=== PATIENT | male | born 1995 | race American Indian/Alaskan Native ===

== ENCOUNTER 2016-09-06 00:32 | Emergency (ER) | payer SELFPAY ==
[2016-09-06 00:55] VITALS: BP 138/90
--- NOTE | 2016-09-08 15:37 | ED Elopement Review ---
ED Pt Elopement review - Call Back decision Pt Call Back Decision: No action required
== END 2016-09-06 06:28 | disposition left against medical advice (07) ==
LOC: ED 00:32
DX: R68.84 Jaw pain (principal); K08.89 Other specified disorders of teeth and supporting structures; F17.200 Nicotine dependence, unspecified, uncomplicated; Z53.21 Procedure and treatment not carried out due to patient leaving prior to being seen by health care provider

== ENCOUNTER 2019-01-14 18:30 | Emergency (ER) | payer SELFPAY ==
[2019-01-14 18:53] VITALS: BP 128/73
--- NOTE | 2019-01-14 18:55 | Emergency Department Report ---
ED ENT HPI - General Chief complaint: Dental/Oral Stated complaint: CYST/MOUTH PAIN Time Seen by Provider: 01/14/19 18:50 Source: patient Mode of arrival: Ambulatory Limitations: No Limitations - History of Present Illness Initial comments: Pt is a 23 yo male who presents with upper dental pain that began last week. states he last saw a dentist a year ago, states he had three teeth pulled. no fever, no facial edema. PMHx asthma. no allergies to meds. - Related Data Previous Rx's Medication Instructions Recorded Last Taken Type Acetaminophen/Codeine [Tylenol 1 tab PO Q6H PRN #6 tab 01/14/19 Unknown Rx /Codeine # 3 tab] Clindamycin [Clindamycin CAP] 450 mg PO TID 7 Days #63 capsule 01/14/19 Unknown Rx Ibuprofen [Motrin 600 MG tab] 600 mg PO Q8H PRN #14 tablet 01/14/19 Unknown Rx Penicillin Vk [Veetids TAB] 500 mg PO QID 7 Days #56 tablet 01/14/19 Unknown Rx Allergies Allergy/AdvReac Type Severity Reaction Status Date / Time No Known Allergies Allergy Verified 01/14/19 18:37 ED Dental HPI - General Chief complaint: Dental/Oral Stated complaint: CYST/MOUTH PAIN Time Seen by Provider: 01/14/19 18:50 Source: patient Mode of arrival: Ambulatory Limitations: No Limitations - Related Data Previous Rx's Medication Instructions Recorded Last Taken Type Acetaminophen/Codeine [Tylenol 1 tab PO Q6H PRN #6 tab 01/14/19 Unknown Rx /Codeine # 3 tab] Clindamycin [Clindamycin CAP] 450 mg PO TID 7 Days #63 capsule 01/14/19 Unknown Rx Ibuprofen [Motrin 600 MG tab] 600 mg PO Q8H PRN #14 tablet 01/14/19 Unknown Rx Penicillin Vk [Veetids TAB] 500 mg PO QID 7 Days #56 tablet 01/14/19 Unknown Rx Allergies Allergy/AdvReac Type Severity Reaction Status Date / Time No Known Allergies Allergy Verified 01/14/19 18:37 ED Review of Systems ROS: Stated complaint: CYST/MOUTH PAIN Other details as noted in HPI Comment: All other systems reviewed and negative ED Past Medical Hx - Past Medical History Previous Medical History?: No - Surgical History Additional Surgical History: DENTAL SUTURE - Social History Smoking Status: Current Every Day Smoker Substance Use Type: Alcohol, Marijuana - Medications Home Medications: Home Medications Medication Instructions Recorded Confirmed Last Taken Type Acetaminophen/Codeine [Tylenol 1 tab PO Q6H PRN #6 tab 01/14/19 Unknown Rx /Codeine # 3 tab] Clindamycin [Clindamycin CAP] 450 mg PO TID 7 Days #63 capsule 01/14/19 Unknown Rx Ibuprofen [Motrin 600 MG tab] 600 mg PO Q8H PRN #14 tablet 01/14/19 Unknown Rx Penicillin Vk [Veetids TAB] 500 mg PO QID 7 Days #56 tablet 01/14/19 Unknown Rx ED Physical Exam - General Limitations: No Limitations General appearance: alert, in no apparent distress - Head Head exam: Present: atraumatic, normocephalic - Eye Eye exam: Present: normal appearance - ENT ENT exam: Present: normal orophraynx, mucous membranes moist, other (cracked tooth to the right upper jaw with area of edema present on the gumline and hard palate, uvula is midline, no uvular edema ) - Respiratory Respiratory exam: Present: normal lung sounds bilaterally. Absent: respiratory distress, wheezes, rales, rhonchi, stridor, chest wall tenderness, accessory muscle use, decreased breath sounds, prolonged expiratory - Cardiovascular Cardiovascular Exam: Present: regular rate, normal rhythm, normal heart sounds. Absent: systolic murmur, diastolic murmur, rubs, gallop - Neurological Exam Neurological exam: Present: alert, oriented X3 - Psychiatric Psychiatric exam: Present: normal affect, normal mood - Skin Skin exam: Present: warm, dry, intact ED Course Vital Signs 01/14/19 18:50 Temperature 99.7 F H Pulse Rate 88 Respiratory 16 Rate Blood Pressure 128/73 [Left] O2 Sat by Pulse 99 Oximetry ED Medical Decision Making - Medical Decision Making Pt is a 23 yo male who presents with upper dental pain that began last week. states he last saw a dentist a year ago, states he had three teeth pulled. no fever, no facial edema. PMHx asthma. no allergies to meds. VSS. on exam: cracked tooth to the right upper jaw with area of edema present on the gumline and hard palate, uvula is midline, no uvular edema, examination consistent with dental abscess. pt given clindamycin, penicillin vk, tylenol with codeine, ibuprofen. advised pt to please take medication as prescribed. do not drive or operate heavy machinery while taking pain medication. please follow up with a dentist in the next 2-3 days. it is very important you follow up with a dentist for a permanent solution. given list of community dental clinics. return to the emergency room for any new or worsening symptoms. Critical care attestation.: If time is entered above; I have spent that time in minutes in the direct care of this critically ill patient, excluding procedure time. ED Disposition Clinical Impression: Dental abscess, Cracked tooth, Dental caries Disposition: TO HOME OR SELFCARE Is pt being admited?: No Does the pt Need Aspirin: No Condition: Stable Instructions: Dental Abscess (ED) Additional Instructions: please take medication as prescribed. do not drive or operate heavy machinery while taking pain medication. please follow up with a dentist in the next 2-3 days. it is very important you follow up with a dentist for a permanent solution. given list of community dental clinics. return to the emergency room for any new or worsening symptoms. Prescriptions: Clindamycin [Clindamycin CAP] 450 mg PO TID 7 Days #63 capsule Ibuprofen [Motrin 600 MG tab] 600 mg PO Q8H PRN #14 tablet PRN Reason: Pain Acetaminophen/Codeine [Tylenol /Codeine # 3 tab] 1 tab PO Q6H PRN #6 tab PRN Reason: Pain , Severe (7-10) Penicillin Vk [Veetids TAB] 500 mg PO QID 7 Days #56 tablet Referrals: a, dentist [Other] - 2-3 Days Time of Disposition: 18:56 Print Language: FAROESE
== END 2019-01-14 19:09 | disposition home or self-care (01) ==
LOC: ED 18:30
DX: K04.7 Periapical abscess without sinus (principal); K03.81 Cracked tooth; K02.9 Dental caries, unspecified; F17.200 Nicotine dependence, unspecified, uncomplicated; F12.90 Cannabis use, unspecified, uncomplicated; Z79.899 Other long term (current) drug therapy
CPT/HCPCS: 99282

== ENCOUNTER 2019-10-06 01:57 | Emergency (ER) | payer SELFPAY ==
[2019-10-06 02:10] VITALS: BP 124/61
[2019-10-06] MEDS ORDERED: CLINDAMYCIN 300 MG CAP PO ONE (02:22)
[2019-10-06] MEDS ORDERED: IBUPROFEN 600 MG TAB PO ONE (02:22)
[2019-10-06] MEDS ORDERED: predniSONE 20 MG TAB PO ONE (02:22)
[2019-10-06] MEDS ORDERED: HYDROcodone/ACETAMINOPHEN 7.5-325MG TAB PO ONE (02:22)
[2019-10-06] MEDS ORDERED: ONDANSETRON 4 MG ODT TAB PO ONE (02:23)
--- NOTE | 2019-10-06 02:27 | Emergency Department Report ---
ED General Adult HPI - General Chief complaint: Dental/Oral Stated complaint: TOOTH PAIN Source: patient Mode of arrival: Ambulatory Limitations: No Limitations - History of Present Illness Initial comments: Patient is a 24-year-old -Mong[place] male with no past medical history who presents to the ED with complaint of persistent worsening left maxillary maxillary gingival swelling and pain for the last 2 weeks after having a dental extraction surgery which extracted his left maxillary premolar and molar teeth. Patient states that subsequently he took prophylactic antibiotics for 1 week, penicillin and completed. Patient states that the left lateral maxillary gingival swelling and pain have worsened in the last 3 days such that he has not been able to sleep or work because of the pain. Patient also complains of severe headache on the left temporal area. Patient denies dizziness, syncope, chest pain, shortness of breath, sore throat, nausea and vomiting, fever, chills, cough, abdominal pain, change in vision or dysphagia and dysphonia. MD Complaint: left maxillary gum pain and swelling -: Sudden, week(s) (2) Location: mouth Radiation: non-radiation Severity scale (0 -10): 8 Quality: aching, sharp Consistency: constant Improves with: none Worsens with: eating Associated Symptoms: denies other symptoms, loss of appetite. denies: confusion, chest pain, cough, diaphoresis, fever/chills, headaches, malaise, nausea/vomiting, rash, seizure, shortness of breath, syncope, weakness Treatments Prior to Arrival: none - Related Data Previous Rx's Medication Instructions Recorded Last Taken Type Acetaminophen/Codeine [Tylenol 1 tab PO Q6H PRN #6 tab 01/14/19 Unknown Rx /Codeine # 3 tab] Clindamycin [Clindamycin CAP] 450 mg PO TID 7 Days #63 capsule 01/14/19 Unknown Rx Ibuprofen [Motrin 600 MG tab] 600 mg PO Q8H PRN #14 tablet 01/14/19 Unknown Rx Penicillin Vk [Veetids TAB] 500 mg PO QID 7 Days #56 tablet 01/14/19 Unknown Rx Acetaminophen/Codeine [Tylenol 1 tab PO Q6H PRN #10 tab 10/06/19 Unknown Rx /Codeine # 3 tab] Clindamycin [Clindamycin CAP] 300 mg PO Q8HR #60 capsule 10/06/19 Unknown Rx Ketorolac [Toradol] 10 mg PO Q8H PRN #20 tablet 10/06/19 Unknown Rx predniSONE [Deltasone] 40 mg PO QDAY #10 tab 10/06/19 Unknown Rx Allergies Allergy/AdvReac Type Severity Reaction Status Date / Time No Known Allergies Allergy Verified 01/14/19 18:37 ED Review of Systems ROS: Stated complaint: TOOTH PAIN Other details as noted in HPI Constitutional: denies: chills, fever Eyes: denies: eye pain, eye discharge, vision change ENT: dental pain (swollen left maxillary gums with pain). denies: ear pain, throat pain Respiratory: denies: cough, shortness of breath, wheezing Cardiovascular: denies: chest pain, palpitations Endocrine: no symptoms reported Gastrointestinal: denies: abdominal pain, nausea, diarrhea Genitourinary: denies: urgency, dysuria Musculoskeletal: denies: back pain, joint swelling, arthralgia Skin: denies: rash, lesions Neurological: headache. denies: weakness, paresthesias Psychiatric: denies: anxiety, depression Hematological/Lymphatic: denies: easy bleeding, easy bruising ED Past Medical Hx - Past Medical History Previous Medical History?: Yes Hx Asthma: Yes - Surgical History Past Surgical History?: Yes Additional Surgical History: DENTAL SUTURE - Social History Smoking Status: Current Some Day Smoker Substance Use Type: Alcohol, Marijuana - Medications Home Medications: Home Medications Medication Instructions Recorded Confirmed Last Taken Type Acetaminophen/Codeine [Tylenol 1 tab PO Q6H PRN #6 tab 01/14/19 Unknown Rx /Codeine # 3 tab] Clindamycin [Clindamycin CAP] 450 mg PO TID 7 Days #63 capsule 01/14/19 Unknown Rx Ibuprofen [Motrin 600 MG tab] 600 mg PO Q8H PRN #14 tablet 01/14/19 Unknown Rx Penicillin Vk [Veetids TAB] 500 mg PO QID 7 Days #56 tablet 01/14/19 Unknown Rx Acetaminophen/Codeine [Tylenol 1 tab PO Q6H PRN #10 tab 10/06/19 Unknown Rx /Codeine # 3 tab] Clindamycin [Clindamycin CAP] 300 mg PO Q8HR #60 capsule 10/06/19 Unknown Rx Ketorolac [Toradol] 10 mg PO Q8H PRN #20 tablet 10/06/19 Unknown Rx predniSONE [Deltasone] 40 mg PO QDAY #10 tab 10/06/19 Unknown Rx ED Physical Exam - General Limitations: No Limitations General appearance: alert, in no apparent distress - Head Head exam: Present: atraumatic, normocephalic, normal inspection - Eye Eye exam: Present: normal appearance, PERRL, EOMI Pupils: Present: normal accommodation - ENT ENT exam: Present: normal exam, mucous membranes moist, TM's normal bilaterally, normal external ear exam, other (Grossly swollen tender left maxillary gums with diffuse dental caries) - Neck Neck exam: Present: normal inspection, full ROM - Respiratory Respiratory exam: Present: normal lung sounds bilaterally. Absent: respiratory distress, wheezes, rales, rhonchi, chest wall tenderness, accessory muscle use, decreased breath sounds, prolonged expiratory - Cardiovascular Cardiovascular Exam: Present: regular rate, normal rhythm, normal heart sounds. Absent: systolic murmur, diastolic murmur, rubs, gallop - GI/Abdominal GI/Abdominal exam: Present: soft, normal bowel sounds. Absent: tenderness, guarding, rebound, hyperactive bowel sounds, hypoactive bowel sounds, organomegaly - Extremities Exam Extremities exam: Present: normal inspection, full ROM, normal capillary refill - Back Exam Back exam: Present: normal inspection, full ROM. Absent: tenderness, muscle spasm, paraspinal tenderness, vertebral tenderness - Neurological Exam Neurological exam: Present: alert, oriented X3, CN II-XII intact, normal gait, reflexes normal - Psychiatric Psychiatric exam: Present: normal affect, normal mood - Skin Skin exam: Present: warm, dry, intact, normal color. Absent: rash ED Course Vital Signs 10/06/19 02:08 Temperature 97.6 F Pulse Rate 65 Respiratory 16 Rate Blood Pressure 124/61 O2 Sat by Pulse 99 Oximetry ED Medical Decision Making - Medical Decision Making This is a 24-year-old -[place] male with no past medical history who presents to the ED with complaint of persistent worsening left maxillary maxillary gingival swelling and pain for the last 2 weeks after having a dental extraction surgery which extracted his left maxillary premolar and molar teeth. Patient states that subsequently he took prophylactic antibiotics for 1 week, penicillin and completed. Patient states that the left lateral maxillary gingival swelling and pain have worsened in the last 3 days such that he has not been able to sleep or work because of the pain. Patient also complains of severe headache on the left temporal area. In the ED, patient is alert and amandeep ented x3 and is not in distress but appears to be in significant pain. Patient was treated in the ED for pain and was given initial oral antibiotics. Patient was discharged home on pain medications and antibiotics and was advised to follow-up with his primary care physician or dentist in 7 to 10 days for reevaluation or return to the ED immediately if symptoms get worse. - Differential Diagnosis dental caries; Gingivitis; abscess Critical care attestation.: If time is entered above; I have spent that time in minutes in the direct care of this critically ill patient, excluding procedure time. ED Disposition Clinical Impression: Acute gingivitis, Dental caries Disposition: TO HOME OR SELFCARE Is pt being admited?: No Does the pt Need Aspirin: No Condition: Stable Instructions: Dental Caries (ED), Gingivitis (ED) Additional Instructions: Take medication with food, drink plenty of fluids and follow-up with your primary care physician in 7 to 10 days for reevaluation. Consider following up with a dentist for further evaluation. Return to the ED immediately if symptoms get worse. Prescriptions: Clindamycin [Clindamycin CAP] 300 mg PO Q8HR #60 capsule predniSONE [Deltasone] 40 mg PO QDAY #10 tab Ketorolac [Toradol] 10 mg PO Q8H PRN #20 tablet PRN Reason: Pain Acetaminophen/Codeine [Tylenol /Codeine # 3 tab] 1 tab PO Q6H PRN #10 tab PRN Reason: Pain , Severe (7-10) Referrals: [facility] [Outside] - 3-5 Days Forms: Work/School Release Form(ED) Time of Disposition: 02:24 Print Language: AMHARIC
== END 2019-10-06 02:55 | disposition home or self-care (01) ==
LOC: ED 01:57
DX: K02.9 Dental caries, unspecified (principal); K05.00 Acute gingivitis, plaque induced; J45.909 Unspecified asthma, uncomplicated; F17.200 Nicotine dependence, unspecified, uncomplicated; F12.10 Cannabis abuse, uncomplicated; Z79.899 Other long term (current) drug therapy
CPT/HCPCS: 99282; J7512; Q0162

== ENCOUNTER 2020-04-18 22:21 | Emergency (ER) | payer SELFPAY ==
[2020-04-18 22:28] VITALS: BP 127/68
== END 2020-04-19 | disposition left against medical advice (07) ==
LOC: ED 22:21
DX: F10.10 Alcohol abuse, uncomplicated (principal); Z53.21 Procedure and treatment not carried out due to patient leaving prior to being seen by health care provider

== ENCOUNTER 2020-09-26 09:24 | Emergency (ER) | payer OTHER ==
[2020-09-26 09:42] VITALS: BP 115/74
[2020-09-26 10:09] LABS: Basophils # (Auto) 0.1 K/mm3 (0.0-0.1); Basophils % (Auto) 0.8 % (0.0-1.8); Eosinophils # (Auto) 0.1 K/mm3 (0.0-0.4); Eosinophils % (Auto) 1.8 % (0.0-4.3); Hematocrit 46.6 % (35.5-45.6); Hemoglobin 15.7 gm/dl (11.8-15.2); Lymphocytes # (Auto) 3.2 K/mm3 (1.2-5.4); Lymphocytes % (Auto) 45.6 % (13.4-35.0); Mean Corpuscular HGB Conc 34 % (32-34); Mean Corpuscular Volume 88 fl (84-94); Monocytes # (Auto) 0.5 K/mm3 (0.0-0.8); Monocytes % (Auto) 6.6 % (0.0-7.3); Platelet Count 285 K/mm3 (140-440); Red Blood Count 5.31 M/mm3 (3.65-5.03); Red Cell Distribution Width 12.6 % (13.2-15.2)
[2020-09-26 10:13] LABS: Bilirubin,Urine NEG (Negative); Blood,Urine NEG (Negative); Color,Urine Yellow (Yellow); Mucus,Urine FEW /HPF; Protein,Urine <15 mg/dL mg/dL (Negative); Urobilinogen,Urine < 2.0 mg/dL (<2.0)
[2020-09-26 10:31] LABS: Alanine Aminotransferase 10 units/L (7-56); Albumin 4.7 g/dL (3.9-5); BUN/Creatinine Ratio 10; Blood Urea Nitrogen 10 mg/dL (9-20); Calcium 9.3 mg/dL (8.4-10.2); Hemolysis Index 14
[2020-09-26] MEDS ORDERED: SODIUM CHLORIDE 0.9% 1000 ML 1,000 ML IV ONE (10:42)
[2020-09-26] MEDS ORDERED: DICYCLOMINE 20 MG/2 ML INJ IM ONE (10:42)
[2020-09-26] MEDS ORDERED: ONDANSETRON 4 MG/2 ML INJ IV ONE (10:42)
--- NOTE | 2020-09-26 10:46 | Emergency Department Report ---
<AMARJIT MEIER - Last Filed: 09/26/20 20:07> ED Abdominal Pain HPI - General Chief Complaint: Abdominal Pain Stated Complaint: ABD PAIN, SIDE PAIN Time Seen by Provider: 09/26/20 10:17 Source: patient Mode of arrival: Ambulatory Limitations: No Limitations - History of Present Illness Initial Comments: 25-year-old male presents to the ER today with complaints of abdominal pain, nausea and vomiting. Patient states that he has been having pain to the left and right sides of abdomen/right and left flank areas off and on for about 12 years. He reports associated intermittent nausea and vomiting mainly in the morning when he wakes up. He states that he does not recall being taken to the emergency department manager for evaluation for his pain/vomiting when he was younger. He states that he did see a primary care physician last year in 2019 for the first time for his symptoms and he states they did a urinalysis and he was told that he may have kidney stones. He was supposed to follow-up but he states soon after he lost his job and therefore his insurance. Patient states that what made him come in today is because he woke up again with similar stabbing pain to his right and left flank area/abdominal areas but he did not get much relief of the pain after urinating which typically he gets relief after urinating. He denies any hematuria, he denies any dysuria, he denies any urinary odor or urinary frequency. He denies any diarrhea or constipation. He denies any hematemesis or coffee-ground emesis, hematochezia, mucus in the school, or melena. Patient states that he does smoke marijuana but denies any other illicit drug use. Patient states that he stopped drinking alcohol completely 6 months ago but prior to that he was a social drinker. He denies any abdominal surgeries. MD Complaint: abdominal pain -: year(s) Location: bilateral flank - Related Data Previous Rx's Medication Instructions Recorded Last Taken Type Acetaminophen/Codeine [Tylenol 1 tab PO Q6H PRN #6 tab 01/14/19 Unknown Rx /Codeine # 3 tab] Clindamycin [Clindamycin CAP] 450 mg PO TID 7 Days #63 capsule 01/14/19 Unknown Rx Ibuprofen [Motrin 600 MG tab] 600 mg PO Q8H PRN #14 tablet 01/14/19 Unknown Rx Penicillin Vk [Veetids TAB] 500 mg PO QID 7 Days #56 tablet 01/14/19 Unknown Rx Acetaminophen/Codeine [Tylenol 1 tab PO Q6H PRN #10 tab 10/06/19 Unknown Rx /Codeine # 3 tab] Clindamycin [Clindamycin CAP] 300 mg PO Q8HR #60 capsule 10/06/19 Unknown Rx Ketorolac [Toradol] 10 mg PO Q8H PRN #20 tablet 10/06/19 Unknown Rx predniSONE [Deltasone] 40 mg PO QDAY #10 tab 10/06/19 Unknown Rx Allergies Allergy/AdvReac Type Severity Reaction Status Date / Time No Known Allergies Allergy Verified 09/26/20 09:42 ED Review of Systems Comment: All other systems reviewed and negative Constitutional: denies: chills, fever Eyes: denies: eye pain, eye discharge, vision change ENT: denies: ear pain, throat pain Respiratory: denies: cough, shortness of breath, wheezing Cardiovascular: denies: chest pain, palpitations, dyspnea on exertion, edema, syncope, paroxysmal nocturnal dyspnea Gastrointestinal: abdominal pain, nausea, vomiting. denies: diarrhea, constipation, hematemesis, melena, hematochezia Genitourinary: denies: urgency, dysuria, frequency, hematuria, discharge, testicular pain, testicular mass Musculoskeletal: denies: back pain, joint swelling, arthralgia Skin: denies: rash, lesions, change in color, change in hair/nails, pruritus Neurological: denies: headache, weakness, numbness, paresthesias, confusion, abnormal gait, vertigo Psychiatric: denies: anxiety, depression Hematological/Lymphatic: denies: easy bleeding, easy bruising ED Past Medical Hx - Past Medical History Hx Asthma: Yes - Surgical History Additional Surgical History: DENTAL SUTURE - Social History Smoking Status: Current Some Day Smoker Substance Use Type: Marijuana - Medications Home Medications: Home Medications Medication Instructions Recorded Confirmed Last Taken Type Acetaminophen/Codeine [Tylenol 1 tab PO Q6H PRN #6 tab 01/14/19 Unknown Rx /Codeine # 3 tab] Clindamycin [Clindamycin CAP] 450 mg PO TID 7 Days #63 capsule 01/14/19 Unknown Rx Ibuprofen [Motrin 600 MG tab] 600 mg PO Q8H PRN #14 tablet 01/14/19 Unknown Rx Penicillin Vk [Veetids TAB] 500 mg PO QID 7 Days #56 tablet 01/14/19 Unknown Rx Acetaminophen/Codeine [Tylenol 1 tab PO Q6H PRN #10 tab 10/06/19 Unknown Rx /Codeine # 3 tab] Clindamycin [Clindamycin CAP] 300 mg PO Q8HR #60 capsule 10/06/19 Unknown Rx Ketorolac [Toradol] 10 mg PO Q8H PRN #20 tablet 10/06/19 Unknown Rx predniSONE [Deltasone] 40 mg PO QDAY #10 tab 10/06/19 Unknown Rx ED Physical Exam - General Limitations: No Limitations General appearance: alert, in no apparent distress - Head Head exam: Present: atraumatic, normocephalic, normal inspection - Eye Eye exam: Present: normal appearance, PERRL, EOMI Pupils: Present: normal accommodation - ENT ENT exam: Present: normal exam, mucous membranes moist - Neck Neck exam: Present: normal inspection, full ROM - Respiratory Respiratory exam: Present: normal lung sounds bilaterally. Absent: respiratory distress, wheezes, rales, rhonchi - Cardiovascular Cardiovascular Exam: Present: regular rate, normal rhythm, normal heart sounds - GI/Abdominal GI/Abdominal exam: Present: soft, tenderness (RUQ, RLQ and LLQ with mild guarding ). Absent: distended, rebound, rigid - Back Exam Back exam: Present: normal inspection - Neurological Exam Neurological exam: Present: alert, oriented X3, CN II-XII intact, normal gait - Psychiatric Psychiatric exam: Present: normal affect, normal mood - Skin Skin exam: Present: intact ED Medical Decision Making - Lab Data Result diagrams: 09/26/20 09:59 09/26/20 09:59 - Medical Decision Making 1103: After coming from seeing a patient upfront, nurse informed me that patient left AMA. He states patient told him he did not want to get an IV or CT and signed out AMA. I was not informed of patient refusal and decision to sign out until after he left ER. ED Disposition Clinical Impression: Abdominal pain Disposition: DC-07 LEFT AGAINST MED ADVICE Is pt being admited?: No Does the pt Need Aspirin: No Condition: Undetermined Referrals: PRIMARY CARE, [Primary Care Provider] - 3-5 Days Forms: AMA Form <ALMA HYDE - Last Filed: 10/01/20 13:45> ED Abdominal Pain HPI - General PUI?: No ED Review of Systems ROS: Stated complaint: ABD PAIN, SIDE PAIN Other details as noted in HPI ED Course Vital Signs 09/26/20 09:40 Temperature 98.4 F Pulse Rate 76 Respiratory 20 Rate Blood Pressure 115/74 O2 Sat by Pulse 100 Oximetry ED Medical Decision Making - Lab Data Result diagrams: 09/26/20 09:59 09/26/20 09:59 Critical care attestation.: If time is entered above; I have spent that time in minutes in the direct care of this critically ill patient, excluding procedure time. ED Disposition Is pt being admited?: No Does the pt Need Aspirin: No
== END 2020-09-26 11:05 | disposition left against medical advice (07) ==
LOC: ED 09:24
DX: R10.9 Unspecified abdominal pain (principal); R11.2 Nausea with vomiting, unspecified; J45.909 Unspecified asthma, uncomplicated; F17.200 Nicotine dependence, unspecified, uncomplicated; Z79.899 Other long term (current) drug therapy
CPT/HCPCS: 36415; 80053; 81001; 83690; 85025; 99283

== ENCOUNTER 2020-10-28 10:42 | Emergency (ER) | payer OTHER ==
[2020-10-28 10:57] VITALS: BP 140/77
--- NOTE | 2020-10-28 11:42 | Emergency Department Report ---
Chief Complaint: Dyspnea/Respdistress Stated Complaint: JUDY Time Seen by Provider: 10/28/20 11:33 - HPI History of Present Illness: 25-year-old male patient presents emergency department with complaints of chest pain since yesterday. Patient was already evaluated at another local emergency department this morning. Diagnostic work-up was unremarkable. He was discharged home with cardiology referral. States his cardiology appointment is scheduled for tomorrow. His symptoms are no different now than they were earlier this morning during his ED evaluation. He is here for "advice on how to get to my appointment." No new symptoms. Of note, triage documentation states patient has a history of asthma. During medical screening examination, patient denies history of asthma. - ROS Review of Systems: GENERAL: Negative for fever. CARDIOVASCULAR: Positive for chest pain. PULMONARY: Negative for shortness of breath. GASTROINTESTINAL: Negative for abdominal pain. MUSCULOSKELETAL: Negative for back pain. NEUROLOGICAL: Negative for headache. INTEGUMENTARY: Negative for rash. - Exam Vital Signs: Vital Signs 10/28/20 10:48 Temperature 98.2 F Pulse Rate 123 H Respiratory 20 Rate Blood Pressure 140/77 O2 Sat by Pulse 100 Oximetry Physical Exam: General: Awake and alert. No acute distress. Head: Atraumatic, normocephalic. Eyes: EOMI. Pupils are equal and round. Normal sclera and conjunctiva. ENT: Oral mucosa is moist. Normal pharyngeal exam. Neck: Supple. No lymphadenopathy. Pulmonary: No respiratory distress. Clear to auscultation bilaterally. Cardiac: Regular rate and rhythm. Pulses are palpable and equal bilaterally. No lower extremity cyanosis or edema. Skin: Warm and dry. No rashes. Abdomen: Soft, non-tender, non-protuberant. No guarding, rigidity, or rebound. Bowel sounds are normal. No organomegaly or masses noted. Back: Normal alignment. No CVA tenderness. Extremities: Symmetrical. Full range of motion intact. Neurological: Alert and oriented, appropriately interactive, no focal deficits. Psych: Cooperative. Appropriate mood and affect. Speech is evenly metered. Thoughts are logically construed. MSE screening note: Focused history and physical exam performed. Due to findings the following was ordered: ED Medical Decision Making - Medical Decision Making Patient presents to the emergency department from another local emergency department following chest pain evaluation. Documentation from [facility] shows patient was evaluated by an emergency physician and underwent EKG, chest x-ray, CBC, CMP, D-dimer, CT of the chest with IV contrast, coagulation studies, and troponin assay. He was diagnosed with nonspecific chest pain, prescribed Protonix, and referred to cardiology for follow-up within 48 hours. Patient has not filled his prescription. His vital signs were stable at the time of discharge. He has not developed any new symptoms or worsening of his symptoms since leaving the emergency department less than 8 hours ago. Of note, patient was apparently also evaluated by the outside facility on October 27 for similar symptoms and referred to agriculture teacher -- this is patient's third evaluation in 48 hours. Patient is afebrile, hemodynamically stable, no respiratory distress, no h ypoxia, ambulatory without assistance. He is walking around the waiting room and engaging in conversation with other patients waiting to be seen. Tachycardia noted on arrival resolved without intervention. Repeat heart rate 96 bpm. There is no clinical indication for repeat chest pain evaluation on an emergent basis. Emphasized the importance of following up with both cardiology and gastroenterology as previously instructed. Patient expressed understanding and is agreeable to plan of care. Strict return precautions provided. History, exam, diagnostic testing, and current condition do not suggest worrisome pathology to warrant further testing, continued ED treatment, admission, or surgical evaluation at this point. Given the low probability of a significant medical illness, it would be more likely to result in harm than benefit to perform further testing at this stage. Discussed findings, presumptive diagnosis, need for follow-up and specific signs/symptoms that should prompt immediate return to the emergency department. Instructions were explained in detail to the patient in addition to giving written discharge information. Patient expressed understanding and was given the opportunity to ask questions, all of which were satisfactorily answered prior to discharge home. ED Disposition for MSE Clinical Impression: Encounter for medical screening examination Disposition: Z- MED SCREENING EXAM-LEFT Is pt being admited?: No Does the pt Need Aspirin: No Condition: Stable Instructions: Medical Screening Exam Additional Instructions: Take Tylenol every 4 hours and Motrin every 8 hours as needed for pain. You must follow-up with metal ceiling builder and agriculture teacher as previously instructed. Return to the emergency department immediately for new or worsening symptoms. Referrals: [facility] [Provider Group] - 3-5 Days Time of Disposition: 11:43
== END 2020-10-28 11:50 | disposition left against medical advice (07) ==
LOC: ED 10:42
DX: R07.89 Other chest pain (principal); Z00.00 Encounter for general adult medical examination without abnormal findings; Z53.21 Procedure and treatment not carried out due to patient leaving prior to being seen by health care provider

== ENCOUNTER 2020-11-01 21:54 | Emergency (ER) | payer SELFPAY ==
--- NOTE | 2020-11-01 22:15 | Event Note ---
ED Screening Note ED Screening Note: GIRLFRIEND DROVE TO ER STATING HE CANT BREATH PT LEANING FORWARD, TACHYPNIC STATES HE IS SOB HERE 4 DAYS AGO WITH THE SAME SEE EMR DENIES MED HX This initial assessment/diagnostic orders/clinical plan/treatment(s) is/are subject to change based on patients health status, clinical progression and re-assessment by fellow clinical providers in the ED. Further treatment and workup at subsequent clinical providers discretion. Patient/guardian urged not to elope from the ED as their condition may be serious if not clinically assessed and managed. Initial orders include: EKG LABS UDS
[2020-11-01 22:51] LABS: Basophils % (Auto) 0.7 % (0.0-1.8); Eosinophils # (Auto) 0.1 K/mm3 (0.0-0.4); Eosinophils % (Auto) 1.2 % (0.0-4.3); Hemoglobin 15.3 gm/dl (11.8-15.2); Lymphocytes # (Auto) 3.4 K/mm3 (1.2-5.4); Lymphocytes % (Auto) 48.4 % (13.4-35.0); Mean Corpuscular HGB Conc 35 % (32-34); Mean Corpuscular Volume 86 fl (84-94); Monocytes # (Auto) 0.5 K/mm3 (0.0-0.8); Monocytes % (Auto) 6.6 % (0.0-7.3); Platelet Count 286 K/mm3 (140-440); Red Cell Distribution Width 12.3 % (13.2-15.2)
--- NOTE | 2020-11-01 23:01 | XRay Report ---
CHEST 2 VIEWS INDICATION / CLINICAL INFORMATION: Chest Pain. COMPARISON: None available FINDINGS: SUPPORT DEVICES: None. HEART / MEDIASTINUM: No significant abnormality. LUNGS / PLEURA: No significant pulmonary or pleural abnormality. No pneumothorax. ADDITIONAL FINDINGS: No significant additional findings. IMPRESSION: 1. No acute findings. Signer Name: Brooklyn Evans MD Signed: 11/01/2020 10:56 PM Workstation Name: [id number]
[2020-11-01 23:15] LABS: Alanine Aminotransferase 12 units/L (7-56); Albumin 5.1 g/dL (3.9-5); BUN/Creatinine Ratio 8; Blood Urea Nitrogen 9 mg/dL (9-20); Hemolysis Index 8
--- NOTE | 2020-11-01 23:30 | Emergency Department Report ---
ED Chest Pain HPI - General Chief Complaint: Chest Pain Stated Complaint: CHEST PAIN/SOB PUI?: No Time Seen by Provider: 11/01/20 23:14 Source: patient Mode of arrival: Ambulatory Limitations: No Limitations - History of Present Illness Initial Comments: Patient is a 25-year-old male who presents emergency room with complaints of chest pain. Patient states that he is also having shortness of breath. Patient states his symptoms are started 1 week ago. Patient states he was seen here 4 days ago for the same symptoms and has not had any resolution. Patient states he was discharged from here 4 days ago. Patient states he has not seen his primary care or porcelain technician or any specialist. Patient states that his only past medical history of asthma. Patient states he ran out of his asthma inhaler 1 month ago. Patient states he needs a refill. Patient denies fever and chills. Patient denies cough. Patient states that his chest pain is better with rest and worse with palpation of his left chest and movement of his left arm. Patient states his chest pain is unchanged with exertion. Patient states his shortness of breath is better with rest and worse with movement. Patient states his shortness of breath is unchanged with cough or exertion. Patient denies fever and chills. Patient states his left chest pain is a 10 out of 10. Patient denies recent travel. Patient denies recent international travel. Lito buckner denies exposure to the novel coronavirus. Patient denies sick contacts. Patient denies fever and chills. Patient denies cough. Patient denies diarrhea. Patient denies coming in contact with anybody with symptoms of the novel coronavirus. MD Complaint: chest pain -: Sudden Onset: during rest - Related Data Previous Rx's Medication Instructions Recorded Last Taken Type Acetaminophen/Codeine [Tylenol 1 tab PO Q6H PRN #6 tab 01/14/19 Unknown Rx /Codeine # 3 tab] Clindamycin [Clindamycin CAP] 450 mg PO TID 7 Days #63 capsule 01/14/19 Unknown Rx Ibuprofen [Motrin 600 MG tab] 600 mg PO Q8H PRN #14 tablet 01/14/19 Unknown Rx Penicillin Vk [Veetids TAB] 500 mg PO QID 7 Days #56 tablet 01/14/19 Unknown Rx Clindamycin [Clindamycin CAP] 300 mg PO Q8HR #60 capsule 10/06/19 Unknown Rx Ketorolac [Toradol] 10 mg PO Q8H PRN #20 tablet 10/06/19 Unknown Rx predniSONE [Deltasone] 40 mg PO QDAY #10 tab 10/06/19 Unknown Rx Albuterol Mdi (or & Nicu Only) 2 puff IH QID PRN #8.5 gram 11/01/20 Unknown Rx [ProAir HFA Inhaler] methylPREDNISolone [Medrol 4MG 4 mg PO DAILY 6 Days #1 tab.ds.pk 11/01/20 Unknown Rx DOSEPAK (21 tabs)] Acetaminophen/Codeine [Tylenol 1 tab PO Q6H PRN #10 tab 11/02/20 Unknown Rx /Codeine # 3 tab] Allergies Allergy/AdvReac Type Severity Reaction Status Date / Time No Known Allergies Allergy Verified 09/26/20 09:42 Heart Score - HEART Score History: Slightly suspicious EKG: Normal Age: < 45 Risk factors: No known risk factors Troponin: < normal limit HEART Score: 0 - EKG Read Time Time EKG Completed: 22:03 EKG Read Time: 22:06 ED Review of Systems ROS: Stated complaint: CHEST PAIN/SOB Other details as noted in HPI Constitutional: denies: chills, fever Eyes: denies: eye pain, eye discharge, vision change ENT: denies: ear pain, throat pain Respiratory: see HPI, shortness of breath. denies: cough, wheezing Cardiovascular: as per HPI, chest pain. denies: palpitations Endocrine: no symptoms reported Gastrointestinal: denies: abdominal pain, nausea, diarrhea Genitourinary: denies: urgency, dysuria Musculoskeletal: denies: back pain, joint swelling, arthralgia Skin: denies: rash, lesions Neurological: denies: headache, weakness, paresthesias Psychiatric: denies: anxiety, depression Hematological/Lymphatic: denies: easy bleeding, easy bruising ED Past Medical Hx - Past Medical History Previous Medical History?: No Hx Asthma: Yes Additional medical history: left side pain. GERD - Surgical History Past Surgical History?: No Additional Surgical History: DENTAL SUTURE - Family History Family history: no significant - Social History Smoking Status: Never Smoker Substance Use Type: None - Medications Home Medications: Home Medications Medication Instructions Recorded Confirmed Last Taken Type Acetaminophen/Codeine [Tylenol 1 tab PO Q6H PRN #6 tab 01/14/19 Unknown Rx /Codeine # 3 tab] Clindamycin [Clindamycin CAP] 450 mg PO TID 7 Days #63 capsule 01/14/19 Unknown Rx Ibuprofen [Motrin 600 MG tab] 600 mg PO Q8H PRN #14 tablet 01/14/19 Unknown Rx Penicillin Vk [Veetids TAB] 500 mg PO QID 7 Days #56 tablet 01/14/19 Unknown Rx Clindamycin [Clindamycin CAP] 300 mg PO Q8HR #60 capsule 10/06/19 Unknown Rx Ketorolac [Toradol] 10 mg PO Q8H PRN #20 tablet 10/06/19 Unknown Rx predniSONE [Deltasone] 40 mg PO QDAY #10 tab 10/06/19 Unknown Rx Albuterol Mdi (or & Nicu Only) 2 puff IH QID PRN #8.5 gram 11/01/20 Unknown Rx [ProAir HFA Inhaler] methylPREDNISolone [Medrol 4MG 4 mg PO DAILY 6 Days #1 tab.ds.pk 11/01/20 Unknown Rx DOSEPAK (21 tabs)] Acetaminophen/Codeine [Tylenol 1 tab PO Q6H PRN #10 tab 11/02/20 Unknown Rx /Codeine # 3 tab] ED Physical Exam - General Limitations: No Limitations General appearance: alert, in no apparent distress - Head Head exam: Present: atraumatic, normocephalic - Eye Eye exam: Present: normal appearance - ENT ENT exam: Present: mucous membranes moist - Neck Neck exam: Present: normal inspection - Respiratory Respiratory exam: Present: normal lung sounds bilaterally, chest wall tenderness. Absent: respiratory distress, wheezes, rales - Cardiovascular Cardiovascular Exam: Present: regular rate, normal rhythm, normal heart sounds. Absent: systolic murmur, diastolic murmur, rubs, gallop - GI/Abdominal GI/Abdominal exam: Present: soft, normal bowel sounds. Absent: distended, tenderness, guarding, rebound - Rectal Rectal exam: Present: deferred - Extremities Exam Extremities exam: Present: normal inspection - Back Exam Back exam: Present: normal inspection - Neurological Exam Neurological exam: Present: alert, oriented X3 - Psychiatric Psychiatric exam: Present: normal affect, normal mood - Skin Skin exam: Present: warm, dry, intact, normal color. Absent: rash ED Course - Reevaluation(s) Reevaluation #1: I discussed all results and clinical findings with patient. I discussed plan of care with patient. Patient agrees with plan of care. Patient is stable for discharge. Patient will be discharged home. Patient given discharge instructions. Patient voiced understanding of discharge instructions. Patient states he would like to have a gastroenterology referral and an orthopedic referral. Patient also states he would like a refill of his inhaler. 11/01/20 23:53 NEIL score - Neil Score Age > 65: (0) No Aspirin use within the Past 7 Days: (0) No 3 or more CAD Risk Factors: (0) No 2 or more Angina events in past 24 hrs: (0) No Known CAD with more than 50% Stenosis: (0) No Elevated Cardiac Markers: (0) No ST Deviation Greater than 0.5mm: (0) No NEIL Score: 0 ED Medical Decision Making - Lab Data Result diagrams: 11/01/20 22:34 11/01/20 22:34 - EKG Data -: EKG Interpreted by Me EKG shows normal: sinus rhythm, axis, intervals, QRS complexes, ST-T waves Rate: tachycardia - Radiology Data Radiology results: report reviewed, image reviewed interpreted by me: Chest x-ray: No pneumonia, no pneumothorax, no foreign body, no osseous findings, no acute findings CHEST 2 VIEWS INDICATION / CLINICAL INFORMATION: Chest Pain. COMPARISON: None available FINDINGS: SUPPORT DEVICES: None. HEART / MEDIASTINUM: No significant abnormality. LUNGS / PLEURA: No significant pulmonary or pleural abnormality. No pneu mothorax. ADDITIONAL FINDINGS: No significant additional findings. IMPRESSION: 1. No acute findings. - Medical Decision Making Patient is a 25-year-old male who presents emergency room with complaints of chest pain shortness of breath. Patient was seen here 4 days ago for work-up and discharged home. Patient's symptoms continued. Patient did subside. Week ago. Patient had a chest x-ray is negative for acute finding. Personally reviewed the chest x-ray. Patient EKG which was negative for acute findings shows no ST segment elevation. I personally reviewed the EKG. Patient had labs done which were essentially unremarkable. Patient troponin was negative. Patient referred to a porcelain technician, medical microbiologist, orthopedist. Patient stable for discharge. Patient be discharged home. Patient with a refill of his inhaler. Patient will be given a steroid pack for his musculoskeletal chest pain. Patient patient will fax over to her local cardiology group for further evaluation and treatment risk stratification of his chest pain. - Differential Diagnosis Chest pain, muscle pain, GERD, SoB, anxiety, Critical care attestation.: If time is entered above; I have spent that time in minutes in the direct care of this critically ill patient, excluding procedure time. ED Disposition Clinical Impression: Left-sided chest wall pain, Shortness of breath Chest pain Qualifiers: Chest pain type: unspecified Qualified Code(s): R07.9 - Chest pain, unspecified Disposition: OP ADMIT IP TO THIS HOSP Is pt being admited?: No Does the pt Need Aspirin: No Condition: Stable Instructions: Nonspecific Chest Pain, Adult, Chest Wall Pain, [id number], Shortness of Breath, Adult Additional Instructions: Patient to follow-up with primary care in 2 to 3 days. Patient to follow-up with cardiology and orthopedist and gastroenterology in 2 to 3 days. Patient to rest. Patient to increase water. Patient to avoid strenuous exercise or heavy lifting until cleared by orthopedist and cardiology. Patient to take Tylenol as needed for pain. Patient to take meds as directed. Patient to return to the ER if condition worsens, changes or new symptoms arise. Prescriptions: methylPREDNISolone [Medrol 4MG DOSEPAK (21 tabs)] 4 mg PO DAILY 6 Days #1 tab.ds.pk Albuterol Mdi (or & Nicu Only) [ProAir HFA Inhaler] 2 puff IH QID PRN #8.5 gram PRN Reason: Shortness Of Breath Acetaminophen/Codeine [Tylenol /Codeine # 3 tab] 1 tab PO Q6H PRN #10 tab PRN Reason: Pain , Severe (7-10) Referrals: ANGIE ZIMMER MD [Staff Physician] - 2-3 Days HENRIQUE DEGROOT MD [Staff Physician] - 2-3 Days MELCHOR TALBOT MD [Staff Physician] - 2-3 Days CARBUCCIA,MAIRA, MD [Staff Physician] - 2-3 Days Time of Disposition: 00:41
[2020-11-02 01:12] VITALS: BP 131/74
--- NOTE | 2020-11-09 11:03 | Electrocardiograph Report ---
[facility] Test Date: 2020-11-01 Test Time: 22:03:07 Pat Name: BRENDON GARCIA Department: Room: Gender: M Lawyers: ROD : 1995 Requested By: RENUKA KENNEDY Order Number: [id number] Reading MD: Karl Luz Measurements Intervals [place] Rate: 100 P: 84 AR: 129 QRS: 81 QRSD: 101 T: 61 QT: 360 QTc: 464 Interpretive Statements Sinus tachycardia No previous ECG available for comparison Electronically Signed On 11-09-2020 11:03:27 EDT by Karl Luz
== END 2020-11-02 01:11 | disposition admitted as inpatient to this hospital (09) ==
LOC: ED 21:54
DX: R07.89 Other chest pain (principal); R06.02 Shortness of breath; K21.9 Gastro-esophageal reflux disease without esophagitis; J45.909 Unspecified asthma, uncomplicated; Z98.890 Other specified postprocedural states; Z79.899 Other long term (current) drug therapy
CPT/HCPCS: 36415; 71046; 80053; 84484; 85025; 93005